=== PATIENT | male | born 1960 | race Caucasian/White ===

== ENCOUNTER 2020-03-12 10:11 | Emergency (ER) | payer OTHER ==
[~2020-03-12] VITALS: Ht 165.1 cm; Wt 81.6 kg
[2020-03-12 10:19] VITALS: BP 167/92
[2020-03-12] MEDS ORDERED: TETRACAINE HCL/PF 0.5% OPTH 4 ML BTL ONE (10:21)
[2020-03-12] MEDS ORDERED: FLUORESCEIN OPTH STRIP 1 MG ONE (10:21)
[2020-03-12] MEDS ORDERED: FLUORESCEIN OPTH STRIP 1 MG OP ONE (11:05)
[2020-03-12] MEDS ORDERED: TETRACAINE HCL/PF 0.5% OPTH 4 ML BTL OP ONE (11:05)
== END 2020-03-12 10:54 | disposition home or self-care (01) ==
LOC: MED 10:11
DX: S05.02XA Injury of conjunctiva and corneal abrasion without foreign body, left eye, initial encounter (principal); R03.0 Elevated blood-pressure reading, without diagnosis of hypertension; X58.XXXA Exposure to other specified factors, initial encounter; Y93.89 Activity, other specified; Y92.89 Other specified places as the place of occurrence of the external cause; Y99.8 Other external cause status
CPT/HCPCS: 99283